=== PATIENT | female | born 1970 | race Hispanic/Latino ===

== ENCOUNTER 2024-06-03 10:21 | Emergency (ER) | payer SELFPAY ==
[2024-06-03 10:28] VITALS: BP 159/94
--- NOTE | 2024-06-03 10:46 | ED.GENMED ---
History of Present Illness
General
Chief Complaint: Breathing Problem
Source: patient and spouse
Exam Limitations: none
Time Seen by Provider: 06/03/24 10:41
Nursing documentation reviewed up to this point in time: agreed with
History of Present Illness
History of Present Illness:
54-year-old female cough congestion wheeze intermittently for a few weeks seen in urgent care, given an inhaler and some pills, this was a few months ago, never formally diagnosed with asthma other symptoms started 3 to 4 years ago, originally from
[place] been in the [place], nondrinker non-smoker she is currently not working she had no calf pain no hemoptysis, no sick contacts no fevers no chills
Past History
Past History
ED Past Medical History: Asthma (Symptoms for a few years never formally diagnosed)
Social History
Tobacco: Non-smoker
Alcohol: None
Drug: None
Personal:
Living: with family
Employment: Not employed
Review of Systems
Review of Systems
All Other Systems: Not applicable
Constitutional: Denies fever or fatigue
Respiratory: Reports cough and trouble breathing
Cardiac: Reports no symptoms
Skin: Reports no symptoms
Neurological: Reports no symptoms
Endocrine: Reports no symptoms
Phy Exam
Physical Exam
Physical Exam:
Physical Exam
General: no apparent distress, not acutely ill
Neck: No no jaundice
Heart: Regular
Lungs: Diffuse rhonchi with expiratory wheeze
Abdomen: Not tender
Neuro: alert and oriented. no focal neurological deficits
Skin: no rash
Psychiatric: well kept. interactive and cooperative
Extremities: no edema. no calf tenderness.
Scores
Heart Failure Risk
Heart Failure Risk Score: Not Applicable
Course
Orders/Labs/Results
Orders:
Orders
06/03/24 10:45
Electrocardiogram (*1) Stat
Reason for Study: Other
Other Reason for Exam: pneumonia
EKG- Treatment ONCE
Albuterol Sulfate [Ventolin Nebules] 7.5 mg INH R NOW STA
Prednisone [Deltasone] 50 mg PO NOW STA
CR Chest - 2 Views Urgent
Comment:
Reason For Exam: cough
06/03/24 10:46
Peak Flow Rate [RESP] Urgent
Quantity: 1
06/03/24 13:01
Ipratropium/Albuterol Sulfate [Duoneb] 3 ml INH R NOW STA
Vital Signs
Initial and Last Documented VS:
Initial Vital Signs
Temp Pulse Resp BP Pulse Ox
98 F 76 18 159/94 95
06/03/24 10:28 06/03/24 10:28 06/03/24 10:28 06/03/24 10:28 06/03/24 10:28
Last Documented Vital Signs
Temp Pulse Resp BP Pulse Ox
98 F 77 13 141/86 100
06/03/24 10:28 06/03/24 11:30 06/03/24 11:30 06/03/24 11:18 06/03/24 11:30
MDM/Problems Addressed
Differential Diagnosis Includes:
Bronchitis reactive airway disease pneumonia asthma, doubt PE by history and physical
MDM/Problems Addressed:
Shortness of breath cough
Chronic conditions affecting care: Asthma
Acute Exacerbation and/or Progression of Chronic Illness: Asthma
*Radiology
Radiology exam reviewed: preliminary read by ED provider
*Pulse Oximetry
Patient hypoxic: no
*EKG
Interpreted by ED Provider?: Yes
Interpretation: normal
Comparison EKG: no comparison EKG present
Heart Rate: 70
Rate: normal
Rhythm: sinus
Ischemia: no ischemia
*[facility] Interpretation
Rate: [facility]- N/A
*Critical Care Note
Total Time (30-74mins, 75-104mins- exclusive of procedures): Not Applicable
Update Note
Update Note:
Will start her workup here with her peak flow started on nebs steroids chest x-ray EKG will try to arrange some PCP follow-up for her
Patient feeling better after nebs and steroids will give 1 more neb, she still having some wheeze, reviewed with case management resources given for [place] Medicaid etc.
ED Attending Note
-
Portions of this chart may have been created with voice recognition software.� Occasional wrong word or��sound alike� substitutions may have occurred due to the inherent limitations of voice recognition software.
Discharge Plan
Departure
Patient Disposition: Home (Routine Discharge)
Date of Disposition: 06/03/24
Time of Disposition: 13:14
Patient with high blood pressure during this ER visit?: No
Condition: Good
Discharge Problem:
Acute bronchitis
Instructions: Acute Bronchitis, Adult (DC), Asthma, Adult (DC), Shortness of Breath (Dyspnea) (DC)
Prescriptions:
New
albuterol sulfate [Proventil HFA] 90 mcg/actuation HFA aerosol inhaler
2 puff inhalation Q6H PRN (Reason: shortness of breath or wheezing) Qty: 8.5 6RF
prednisone 10 mg tablet
10 mg PO DIRECTED Qty: 30 0RF
Rx Instructions:
4 pills a day for 3 days, 3 pills a day for 3 days, 2 pills a day for 3 days, 1 pill a day for 3 days
No Action
albuterol sulfate [ProAir HFA] 90 mcg/actuation Hfa Aerosol Inhaler
2 puff INHALATION R Q4HPRN PRN (Reason: sob)
Referrals:
NONE,* [Family Provider] -
Interventions
Interventions:
*Risk Screen - Suicide Last Done: 06/03/24 10:29
*General Assessment Last Done: 06/03/24 10:29
*Neglect/Abuse Screening Last Done: 06/03/24 10:29
ED- Fall Risk Assessment Last Done: 06/03/24 11:31
*ED COVID-19 Vaccine History Last Done: 06/03/24 11:31
ED- Cardiac Assessment Last Done: 06/03/24 11:31
ED- Pulmonary Assessment Last Done: 06/03/24 11:31
Discharge Date and Time
Print Language: HUNGARIAN
[2024-06-03 11:18] VITALS: BP 141/86
[2024-06-03] MEDS: DELTASONE 50 MG PO (11:19)
[2024-06-03] MEDS: VENTOLIN NEBULES 7.5 MG INH (11:19)
[2024-06-03 12:00] VITALS: BP 116/81
[2024-06-03 13:00] VITALS: BP 129/79
[2024-06-03] MEDS: DUONEB 3 ML INH (13:11)
== END 2024-06-03 14:38 | disposition home or self-care (01) ==
LOC: EMR 10:21
PROVIDERS: EMERGENCY PHYSICIAN Emergency Medicine
DX: J20.9 Acute bronchitis, unspecified (principal); J45.909 Unspecified asthma, uncomplicated
CPT/HCPCS: 99284; 94640; 71046; 93005